=== PATIENT | female | born 1960 | race Native Hawaiian/Other Pacific Islander ===

== ENCOUNTER 2017-07-29 02:32 | Emergency (ER) | payer OTHER ==
[~2017-07-29] VITALS: Ht 162.6 cm; Wt 61.7 kg
[2017-07-29 03:20] LABS: PLATELET COUNT 206 K/uL (152-353)
[2017-07-29 03:26] LABS: POTASSIUM 3.7 mmol/L (3.6-5.2)
[2017-07-29 07:12] VITALS: BP 134/82; TEMP 97.7
== END 2017-07-29 07:18 | disposition home or self-care (01) ==
LOC: ED 02:32
DX: K83.8 Other specified diseases of biliary tract (principal); K46.9 Unspecified abdominal hernia without obstruction or gangrene; K76.9 Liver disease, unspecified
CPT/HCPCS: 80053; 81000; 85027; 99283; J2405; Q9963

== ENCOUNTER 2017-08-01 10:23 | Outpatient (CLI) | payer OTHER | END 2017-08-02 04:40 | disposition home or self-care (01) | LOC: MAMMO 10:23 | DX: Z12.31 Encounter for screening mammogram for malignant neoplasm of breast (principal) ==

== ENCOUNTER 2017-08-28 10:54 | Outpatient (CLI) | payer OTHER | END 2017-08-28 19:55 | disposition home or self-care (01) | LOC: MAMMO 10:54 | DX: N64.59 Other signs and symptoms in breast (principal) ==

== ENCOUNTER 2017-12-16 19:43 | Emergency (ER) | payer OTHER ==
[~2017-12-16] VITALS: Ht 162.6 cm; Wt 50.6 kg
[2017-12-16 23:16] VITALS: BP 114/72; TEMP 98.1
== END 2017-12-16 23:16 | disposition home or self-care (01) ==
LOC: ED 19:43
DX: S00.11XA Contusion of right eyelid and periocular area, initial encounter (principal); Y04.0XXA Assault by unarmed brawl or fight, initial encounter; Y92.89 Other specified places as the place of occurrence of the external cause
CPT/HCPCS: 99282

== ENCOUNTER 2018-03-09 17:11 | Emergency (ER) | payer OTHER ==
[~2018-03-09] VITALS: Ht 162.6 cm; Wt 46.7 kg
[2018-03-09 17:23] VITALS: BP 134/71; TEMP 97.7
== END 2018-03-09 17:45 | disposition home or self-care (01) ==
LOC: ED 17:11
DX: J04.0 Acute laryngitis (principal); J44.9 Chronic obstructive pulmonary disease, unspecified
CPT/HCPCS: 99282

== ENCOUNTER 2018-03-14 13:26 | Outpatient (CLI) | payer OTHER | END 2018-03-14 19:49 | disposition home or self-care (01) | LOC: MAMMO 13:26 | DX: N64.59 Other signs and symptoms in breast (principal) ==

== ENCOUNTER 2018-03-28 09:07 | Outpatient (CLI) | payer OTHER | END 2018-03-28 09:11 | disposition short-term general hospital (02) | LOC: AMB 09:07 | DX: R42 Dizziness and giddiness (principal); M54.89 Other dorsalgia | CPT/HCPCS: A0425; A0427 ==

== ENCOUNTER 2018-03-28 09:12 | Emergency (ER) | payer OTHER ==
[~2018-03-28] VITALS: Ht 162.6 cm; Wt 46.7 kg
[2018-03-28 09:12] VITALS: BP 129/82; TEMP 99.3
[2018-03-28 09:53] LABS: PLATELET COUNT 289 K/uL (152-353)
[2018-03-28 10:33] LABS: POTASSIUM 3.5 mmol/L (3.6-5.2)
== END 2018-03-28 12:10 | disposition home or self-care (01) ==
LOC: ED 09:12
DX: R42 Dizziness and giddiness (principal); F11.10 Opioid abuse, uncomplicated
CPT/HCPCS: 36415; 80053; 80307; 81000; 85027; 96360; 96361; 99284

== ENCOUNTER 2018-04-04 15:28 | Outpatient (CLI) | payer OTHER | END 2018-04-04 20:38 | disposition home or self-care (01) | LOC: CT 15:28 | DX: R42 Dizziness and giddiness (principal) ==

== ENCOUNTER 2018-05-18 21:48 | Outpatient (CLI) | payer OTHER | END 2018-05-18 21:50 | disposition short-term general hospital (02) | LOC: AMB 21:48 | DX: R41.82 Altered mental status, unspecified (principal) | CPT/HCPCS: A0425; A0427 ==

== ENCOUNTER 2018-05-18 21:59 | Emergency (ER) | payer OTHER ==
[~2018-05-18] VITALS: Ht 162.6 cm; Wt 46.7 kg
[2018-05-18 22:41] LABS: POTASSIUM 3.4 mmol/L (3.6-5.2); SODIUM 139 mmol/L (136-145)
[2018-05-18 22:56] LABS: PLATELET COUNT 269 K/uL (152-353)
[2018-05-19 01:05] VITALS: BP 123/79; TEMP 98.1
== END 2018-05-19 01:12 | disposition home or self-care (01) ==
LOC: ED 21:59
DX: F12.10 Cannabis abuse, uncomplicated (principal); F15.10 Other stimulant abuse, uncomplicated; F11.10 Opioid abuse, uncomplicated; R00.0 Tachycardia, unspecified
CPT/HCPCS: 80053; 80307; 81000; 84484; 85027; 93005; 99283

== ENCOUNTER 2018-09-27 17:58 | Emergency (ER) | payer OTHER ==
[~2018-09-27] VITALS: Ht 162.6 cm; Wt 41.5 kg
[2018-09-27 19:08] LABS: PLATELET COUNT 211 K/uL (152-353)
[2018-09-27 19:19] LABS: POTASSIUM 3.5 mmol/L (3.6-5.2)
[2018-09-27 20:05] VITALS: BP 125/57; TEMP 97.5
== END 2018-09-27 20:13 | disposition home or self-care (01) ==
LOC: ED 17:58
PROVIDERS: Emergency Medicine
DX: S50.12XA Contusion of left forearm, initial encounter (principal); S50.11XA Contusion of right forearm, initial encounter; R51 Headache; X58.XXXA Exposure to other specified factors, initial encounter; Y92.89 Other specified places as the place of occurrence of the external cause
CPT/HCPCS: 80053; 85027; 99283

== ENCOUNTER 2019-01-01 12:54 | Emergency (ER) | payer OTHER | END 2019-01-01 13:25 | disposition home or self-care (01) | LOC: ED 12:54 | DX: R22.32 Localized swelling, mass and lump, left upper limb (principal) | CPT/HCPCS: 99281 ==

== ENCOUNTER 2019-03-13 11:00 | Outpatient (CLI) | payer OTHER | END 2019-03-13 21:51 | disposition home or self-care (01) | LOC: MAMMO 11:00 | DX: Z12.31 Encounter for screening mammogram for malignant neoplasm of breast (principal) ==

== ENCOUNTER 2019-04-19 23:23 | Emergency (ER) | payer OTHER ==
[~2019-04-19] VITALS: Ht 162.6 cm; Wt 49.9 kg
[2019-04-19 23:40] LABS: PLATELET COUNT 297 K/uL (152-353)
[2019-04-19 23:49] LABS: POTASSIUM 3.5 mmol/L (3.6-5.2)
[2019-04-20 02:33] VITALS: BP 108/74; TEMP 97
== END 2019-04-20 02:33 | disposition home or self-care (01) ==
LOC: ED 23:23
PROVIDERS: Emergency Medicine Emergency Medical Services
DX: R41.82 Altered mental status, unspecified (principal); G24.8 Other dystonia; I69.811 Memory deficit following other cerebrovascular disease; F15.10 Other stimulant abuse, uncomplicated; F13.10 Sedative, hypnotic or anxiolytic abuse, uncomplicated
CPT/HCPCS: 80053; 80307; 80320; 81000; 85027; 93005; 96360; 99284

== ENCOUNTER 2019-04-20 14:59 | Emergency (ER) | payer OTHER ==
[~2019-04-20] VITALS: Ht 162.6 cm; Wt 49.9 kg
[2019-04-20 16:50] VITALS: BP 123/57; TEMP 97.9
== END 2019-04-20 16:50 | disposition home or self-care (01) ==
LOC: ED 14:59
DX: M54.2 Cervicalgia (principal); I69.398 Other sequelae of cerebral infarction; R26.81 Unsteadiness on feet; F17.210 Nicotine dependence, cigarettes, uncomplicated; Y04.2XXA Assault by strike against or bumped into by another person, initial encounter; Y92.89 Other specified places as the place of occurrence of the external cause
CPT/HCPCS: 96372; 99283; J1885; J2930

== ENCOUNTER 2019-04-20 23:13 | Outpatient (CLI) | payer OTHER | END 2019-04-20 23:18 | disposition short-term general hospital (02) | LOC: AMB 23:13 | DX: F41.0 Panic disorder [episodic paroxysmal anxiety] (principal) | CPT/HCPCS: A0425; A0427 ==

== ENCOUNTER 2020-04-09 13:08 | Outpatient (CLI) | payer OTHER | END 2020-04-09 19:05 | disposition home or self-care (01) | LOC: MAMMO 13:08 | DX: Z12.31 Encounter for screening mammogram for malignant neoplasm of breast (principal) ==

== ENCOUNTER 2020-09-15 10:22 | Outpatient (CLI) | payer OTHER | END 2020-09-15 22:10 | disposition home or self-care (01) | LOC: INF 10:22 | PROVIDERS: ATTEND Internal Medicine | DX: Z23 Encounter for immunization (principal) | CPT/HCPCS: 96372 ==

== ENCOUNTER 2020-10-07 10:28 | Outpatient (CLI) | payer OTHER | END 2020-10-07 22:18 | disposition home or self-care (01) | LOC: INF | PROVIDERS: ATTEND Internal Medicine | DX: Z23 Encounter for immunization (principal) | CPT/HCPCS: 96372 ==

== ENCOUNTER 2020-10-26 12:31 | Emergency (ER) | payer OTHER ==
[~2020-10-26] VITALS: Ht 162.6 cm; Wt 46.3 kg
[2020-10-26 12:33] VITALS: TEMP 96.1
[2020-10-26 13:04] LABS: PLATELET COUNT 211 K/uL (152-353)
[2020-10-26 13:18] LABS: PARTIAL THROMBOPLASTIN TIME 24.5 SECONDS (24.5-33.6)
[2020-10-26 13:23] LABS: POTASSIUM 3.3 mmol/L (3.6-5.2); SODIUM 140 mmol/L (136-145)
[2020-10-26 13:37] VITALS: BP 159/67
== END 2020-10-26 15:02 | disposition home or self-care (01) ==
LOC: ED 12:31
PROVIDERS: Family Medicine
DX: R51.9 Headache, unspecified (principal); I10 Essential (primary) hypertension; E87.6 Hypokalemia; Z79.899 Other long term (current) drug therapy; Z51.81 Encounter for therapeutic drug level monitoring; F17.210 Nicotine dependence, cigarettes, uncomplicated
CPT/HCPCS: 36415; 80053; 80307; 81000; 82550; 82553; 84484; 85027; 85610; 85730; 93005; 99283

== ENCOUNTER 2021-05-11 09:35 | Outpatient (CLI) | payer OTHER | END 2021-05-11 20:42 | disposition home or self-care (01) | LOC: MAMMO 09:35 | PROVIDERS: ATTEND Internal Medicine | DX: Z12.31 Encounter for screening mammogram for malignant neoplasm of breast (principal); M54.2 Cervicalgia ==

== ENCOUNTER 2021-08-29 17:22 | Outpatient (CLI) | payer OTHER | END 2021-08-29 18:58 | disposition home or self-care (01) | LOC: RAD 17:22 | PROVIDERS: ATTEND Registered Nurse | DX: M54.42 Lumbago with sciatica, left side (principal) ==

== ENCOUNTER 2022-10-10 11:57 | Outpatient (CLI) | payer OTHER | END 2022-10-10 19:15 | disposition home or self-care (01) | LOC: US 11:57 | PROVIDERS: ATTEND Internal Medicine Cardiovascular Disease | DX: R09.89 Other specified symptoms and signs involving the circulatory and respiratory systems (principal); I10 Essential (primary) hypertension ==